=== PATIENT | female | born 1960 | race Caucasian/White ===

== ENCOUNTER → 2018-08-16 | Outpatient (CLI) | payer OTHER ==
[~2018-08-16] VITALS: Ht 167.6 cm; Wt 141.5 kg
[~2018-08-16] MED LIST: ASPIR 8181 MG PO; CENTRUM SILVER1 EAC4 PO; CYMBALTA30 MG PO; FISH OIL 1,001000 M2 PO; HAIR, SKIN & N1 EAC3 PO; HYDROCHLOROTHIA25 M2 PO; LOSARTAN POTASS50 MG PO; OCUVITE TABLET1 EAC1 PO; OSTEO BI-FLEX1 EAC1 PO; PROTONIX40 M1 PO; VITAMIN B-12500 MCG PO; VITAMIN D-32000 UNIT PO
--- NOTE | ~2018-08-16 | P ---
[facility] [place] [address] PROCEDURE REPORT Name: EWA MACHADON [id number] Admission: 08/16/18 Attend Phys: Bao Croado Discharge: Date of : 58 Report #: [id number] THIS REPORT FOR: //name// CC: Bao Ga MD DATE OF SERVICE: 08/16/2018 PROCEDURE PERFORMED: Upper endoscopy with biopsies. HISTORY OF PRESENT ILLNESS: The patient is a 57-year-old female with a history of gastroesophageal reflux disease for a number of years, who is currently taking Protonix 40 mg per day. Overall, is under good control, but does have some mild breakthrough heartburn at times. She denies any dysphagia. No previous history of upper endoscopy. She has actively been losing weight, lost approximately 50 pounds and this has improved her symptoms. Plan is for EGD and colonoscopy today. DESCRIPTION OF PROCEDURE: The risks and benefits of the procedure were explained to the patient, those risks including but not limited to bleeding, perforation, the risk of sedation. She understood these risks and gave informed consent. Sedation was given using propofol per anesthesia. Next, using a standard Olympus upper endoscope, the scope was placed in the patient's mouth and advanced under direct vision through the esophagus, stomach and into the second portion of the duodenum. The larynx was normal in appearance. The upper and mid esophagus was normal. In the distal esophagus at the GE junction, a possible short segment of Brown's was noted. Biopsies were obtained. No evidence of esophagitis. Overall, the gastric mucosa was normal. The pylorus was normal and patent. The duodenal bulb, first and second portion were all normal. The scope was then withdrawn and the procedure terminated. The patient tolerated the procedure well. IMPRESSION: 1. 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 2. Otherwise, normal upper endoscopy. RECOMMENDATIONS: 1. Await biopsy results. 2. Continue daily PPI therapy. [address] [address] PROCEDURE REPORT Name: CARTEREWA LIANET Room #: REG Esmer Jain#: [id number] Admission: 08/16/18 Attend Phys: Bao Corado Discharge: Date of : 58 Report #: [id number] Thank you for allowing me to participate in her care. <ELECTRONICALLY SIGNED> By: Bao Aponte MD 08/17/18 1759 1026 0089 Bao Aponte MD /nt
--- NOTE | ~2018-08-16 | P ---
[facility] [place] [address] PROCEDURE REPORT Name: EWA MACHADON Room #: REG [facility] [id number] Admission: 08/16/18 Attend Phys: Bao Corado Discharge: Date of : 58 Report #: [id number] THIS REPORT FOR: //name// CC: Bao Ga MD DATE OF SERVICE: 08/16/2018 PROCEDURE PERFORMED: Colonoscopy with biopsies. HISTORY OF PRESENT ILLNESS: The patient is a 57-year-old female with a history of colon polyps in 2011. She is here for routine followup. She has a family history of colon cancer in her grandmother and uncle. She denies any symptoms at this time. DESCRIPTION OF PROCEDURE: The risks and benefits of the procedure were explained to the patient, those risks including but not limited to bleeding, perforation, the risk of sedation. She understood these risks and gave informed consent. Sedation was given using propofol per anesthesia. Next, a digital rectal exam was initially performed, which was normal. Next, using a standard Olympus colonoscope, the scope was placed in the patient's anus and advanced under direct vision to the cecum. The overall prep was excellent. The cecum and ileocecal valve were normal in appearance. Ascending, transverse and descending colon were normal. Multiple small diverticula were noted in the sigmoid colon. No evidence of inflammation, otherwise normal. In the rectum, there was a 4-mm sessile polyp. This was removed with cold forceps. On retroflexion, no abnormalities were noted. The scope was then withdrawn and the procedure terminated. The patient tolerated the procedure well. IMPRESSION: 1. Sigmoid diverticulosis. 2. Small rectal polyp. 3. Otherwise, normal colonoscopy. RECOMMENDATIONS: 1. Await biopsy results. 2. Repeat colonoscopy in 5 years. Thank you for allowing me to participate in her care. <ELECTRONICALLY SIGNED> By: Bao Aponte MD 08/17/18 1759 1105 0100 Bao Aponte MD /nt
--- NOTE | ~2018-08-16 | PATH ---
[facility] [place] [address] PATHOLOGY RPT PROCEDURE Name: EWA MACHADO Room #: REG TERRELL Jain#: [id number] Admission: 08/16/18 Date of : 58 Discharge: Report #: [id number] Path Case #: [id number] [facility] Accession Number: [id number] . 01 Material submitted: . PART A: BX OF GE JUNCTION R/O MCINTOSH'S PART B: BX OF POLYP AT RECTUM . 01 Clinical history: . Reflux, screening Possible Mcintosh's, diverticulosis, rectal polyps A: Rule out Mcintosh's . 02 Diagnosis: A. 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 - There is no evidence of dysplasia or malignancy. . B. Colonic mucosa "biopsy of polyp at rectum": - Tubular adenoma. - There is no evidence of high grade dysplasia or malignancy. . (SHA:at;08/17/2018) QTA/08/17/2018 . 02 Electronically signed: . Manuel Dozier MD, Pathologist NPI- [id number] . 01 Gross description: . A. The specimen is received in formalin, labeled "Ewa Machado BX of GE junction" and consists and consists of 2 fragments of soft mane-kim tissue measuring 0.3 x 0.3 x 0.1 cm each. They are entirely submitted in A1. . B. The specimen is received in formalin, labeled "Ewa Machado BX of polyp at rectum" and consists of a fragment of kim tissue measuring 0.3 x 0.3 x 0.2 cm which is entirely submitted in B1. (SDY; 08/16/2018) SYU/SYU . 02 Pathologist provided ICD-10: K22.70, K21.0, D12.0 . 02 CPT . 744176, 906040 Specimen Comment: A courtesy copy of [place] [address] PATHOLOGY RPT PROCEDURE Name: EWA MACHADO Room #: REG [facility]Fr[facility]#: [id number] Admission: 08/16/18 Date of : 58 Discharge: Report #: [id number] Path Case #: [id number] Specimen Comment: [phone], . Specimen Comment: Report sent to / DR CANO Specimen Comment: A duplicate report has been generated due to demographic updates. Performed at: [address], [place], [place] [id number] MD Singh Ramirez MD Phone: [phone] Performed at: [address] [id number] MD Arelis Golden MD Phone: [phone]
== END | disposition home or self-care (01) ==
LOC: GI 07:54
DX: Z12.11 Encounter for screening for malignant neoplasm of colon (principal); D12.8 Benign neoplasm of rectum; K57.30 Diverticulosis of large intestine without perforation or abscess without bleeding; K21.0 Gastro-esophageal reflux disease with esophagitis; I10 Essential (primary) hypertension; F41.9 Anxiety disorder, unspecified; F32.9 Major depressive disorder, single episode, unspecified; E66.9 Obesity, unspecified; Z96.653 Presence of artificial knee joint, bilateral; Z98.890 Other specified postprocedural states; Z86.010 Personal history of colon polyps; Z80.0 Family history of malignant neoplasm of digestive organs; Z88.8 Allergy status to other drugs, medicaments and biological substances; Z79.82 Long term (current) use of aspirin; Z79.899 Other long term (current) drug therapy; Z87.891 Personal history of nicotine dependence; Z68.43 Body mass index [BMI] 50.0-59.9, adult
CPT/HCPCS: 62110; 62900

== ENCOUNTER → 2019-08-15 | Outpatient (CLI) | payer OTHER ==
[~2019-08-15] VITALS: Ht 170.2 cm; Wt 145.2 kg
[~2019-08-15] MED LIST changes: +VALSARTAN80 MG PO
--- NOTE | 2019-08-16 12:41 | P ---
[facility] [place] [address] PROCEDURE REPORT Name: EAW MACHADON Room #: REG [facility] Susy#: [id number] Admission: 08/15/19 Attend Phys: Bao Corado Discharge: Date of : 58 Report #: [id number] THIS REPORT FOR: //name// CC: Bao Delgado DATE OF SERVICE: 08/15/2019 PROCEDURE PERFORMED: Upper endoscopy with biopsies. HISTORY OF PRESENT ILLNESS: The patient is a 58-year-old female with a history of gastroesophageal reflux disease, currently taking Protonix 40 mg on a daily basis, mild breakthrough heartburn at times. Upper endoscopy last year showed Brown esophagus, no dysplasia. She is here for a one-year followup. She denies any dysphagia. DESCRIPTION OF PROCEDURE: The risks and benefits of the procedure were explained to the patient, those risks including but not limited to bleeding, perforation and the risk of sedation. She understood these risks and gave informed consent. Sedation was given using propofol per anesthesia. Next, using a standard upper endoscope, the scope was placed in the patient's mouth and advanced under direct vision through the esophagus, stomach and into the second portion of the duodenum. The larynx was normal in appearance. The upper and mid esophagus was normal in appearance. In the distal esophagus, a short segment of Brown was once again noted. Biopsies were obtained. Overall, the gastric mucosa was normal in the fundus and body, mild erythema was noted in the gastric antrum, otherwise normal. The pylorus was normal and patent. The duodenal bulb, first and second portion were all normal. The scope was then withdrawn and the procedure terminated. The patient tolerated the procedure well. IMPRESSION: 1. Short segment Brown esophagus. 2. Otherwise normal upper endoscopy. RECOMMENDATIONS: 1. Await biopsy results. 2. Continue PPI therapy. We discussed the trial of b.i.d. PPI as the patient is having breakthrough heartburn symptoms despite once a day Protonix. [facility] [address] [place] [address] PROCEDURE REPORT Name: EWA MACHADO Room #: REG TERRELL Jain#: [id number] Admission: 08/15/19 Attend Phys: Bao Corado Discharge: Date of : 58 Report #: [id number] Thank you for allowing me to participate in her care. <ELECTRONICALLY SIGNED> By: Bao Aponte MD 08/16/19 1241 1007 2142 Bao Aponte MD /nt
--- NOTE | 2019-08-16 16:06 | PATH ---
[facility] [address] [place] [address] PATHOLOGY RPT PROCEDURE Name: EWA MACHADO LIANET Room #: REG TERRELL Jain#: [id number] Admission: 08/15/19 Date of : 58 Discharge: Report #: [id number] Path Case #: [id number] [facility] Accession Number: [id number] . 01 Material submitted: . esophagus - ESOPHAGUS BX . 01 Clinical history: . History of Brown's . 02 Diagnosis: Gastroesophageal mucosa, esophagus history of Brown's, endoscopic biopsy: - Specialized columnar epithelium (gastric cardia-type mucosa) with intestinal metaplasia, compatible with Brown's metaplasia. - Negative for dysplasia. - Squamous mucosa with mild esophagitis. (IUV:janiya; 08/16/2019) QMS 08/16/2019 1508 Local . 02 Comment: The above diagnosis of Brown's esophagus is made due to presence of intestinal metaplasia and with the assumption that the biopsies were obtained from the columnar mucosa in the distal esophagus located at least 1 cm proximal to the top of the gastric folds as per the 2016 ACG guidelines. (IUV:janiya; 08/16/2019) . 02 Electronically signed: . Arelis Golden MD, Pathologist NPI- [id number] . 01 Gross description: . The specimen is received in formalin, labeled "Ewa Machado, esophagus biopsy". Received are two segments of pale kim soft tissue ranging in size from 0.4 to 0.5 cm in maximum dimensions. The specimen is submitted entirely in cassette A1. (CAA; 08/15/2019) QAC/QAC 08/15/2019 1421 Local . 02 Pathologist provided ICD-10: K22.70, K20.9 . 02 CPT . 663462 Specimen Comment: A courtesy copy of this report has been sent to Specimen Comment: [phone], , [phone]. [address] [address] PATHOLOGY RPT PROCEDURE Name: EWA MACHADO Room #: REG [facility].#: [id number] Admission: 08/15/19 Date of : 58 Discharge: Report #: [id number] Path Case #: [id number] Specimen Comment: Report sent to ,DR THURMAN / DR CANO Performed at: [address], [place], [place] [id number] MD Singh Ramirez MD Phone: [phone] Performed at: [address] [id number] MD Arelis Golden MD Phone: [phone]
== END | disposition home or self-care (01) ==
LOC: GI 08:45
DX: K22.70 Barrett's esophagus without dysplasia (principal); K21.0 Gastro-esophageal reflux disease with esophagitis; I10 Essential (primary) hypertension; F32.9 Major depressive disorder, single episode, unspecified; G47.30 Sleep apnea, unspecified; Z90.710 Acquired absence of both cervix and uterus; Z98.890 Other specified postprocedural states; Z79.899 Other long term (current) drug therapy; Z87.891 Personal history of nicotine dependence; Z88.8 Allergy status to other drugs, medicaments and biological substances; Z79.82 Long term (current) use of aspirin
CPT/HCPCS: 62110; 62900